=== PATIENT | male | born 1955 | race Caucasian/White ===

== ENCOUNTER 2019-10-07 12:17 | Inpatient (IN) | payer BC ==
[2019-10-07] VITALS (15 sets, daily range): BP systolic 114–184; BP diastolic 63–88
[~2019-10-07] VITALS: Ht 177.8 cm; Wt 104.5 kg
[2019-10-07] MEDS ORDERED: acetaminophen 325mg tablet PO STA (12:46)
[2019-10-07] MEDS ORDERED: normal saline 1000ML IV soln IV ONE (12:50)
[2019-10-07] MEDS: morphine 4 MG/ML inj SYRINge IV PRN ×2 (13:14→13:51)
[2019-10-07 13:16] LABS: BASOPHILS # (AUTO) 0.1 X10'3 (0-0.2); BASOPHILS % (AUTO) 0.4 % (0-1); EOSINOPHILS # (AUTO) 0.1 X10'3 (0-0.9); EOSINOPHILS % (AUTO) 0.7 % (0-6); HEMATOCRIT 44.5 % (42.0-52.0); LYMPHOCYTES # (AUTO) 0.9 X10'3 (1.1-4.8); LYMPHOCYTES % (AUTO) 5.7 % (21-51); MEAN CORPUSCULAR HEMOGLOBIN 27.7 PG (27.0-31.0); MEAN CORPUSCULAR HGB CONC 33.7 g/dL (33.0-36.5); MEAN CORPUSCULAR VOLUME 82.1 FL (78-98); MEAN PLATELET VOLUME 8.2 FL (7.4-10.4); MONOCYTES # (AUTO) 1.2 X10'3 (0-0.9); MONOCYTES % (AUTO) 7.5 % (2-12); NEUTROPHILS # (AUTO) 14.1 X10'3 (1.8-7.7); NEUTROPHILS % (AUTO) 85.7 % (42-75); PLATELET COUNT 285 X10'3 (140-440); RED BLOOD COUNT 5.41 X10'6 (4.70-6.10); RED CELL DISTRIBUTION WIDTH 14.6 % (11.5-14.5); WHITE BLOOD COUNT 16.5 X10'3 (4.5-11.0)
[2019-10-07 13:32] LABS: PARTIAL THROMBOPLASTIN TIME 34 SECONDS (22-32)
[2019-10-07 13:34] LABS: ALANINE AMINOTRANSFERASE 15 U/L (12-78); ALBUMIN 3.4 G/DL (3.4-5.0); ALBUMIN/GLOBULIN RATIO 0.8 (1.1-1.5); ALKALINE PHOSPHATASE 76 IU/L (46-116); ANION GAP 10 (8-16); ASPARTATE AMINO TRANSFERASE 12 U/L (10-37); BILIRUBIN,TOTAL 0.9 MG/DL (0.1-1.0); BLOOD UREA NITROGEN 23 MG/DL (7-18); BUN/CREATININE RATIO 29.1 (5.4-32.0); CALCIUM 9.7 MG/DL (8.5-10.1); CHLORIDE 104 MMOL/L (99-107); CREATININE 0.79 MG/DL (0.60-1.10); GLUCOSE 127 MG/DL (70-104); POTASSIUM 4.2 MMOL/L (3.5-5.1); SODIUM 139 MMOL/L (135-145); TOTAL CARBON DIOXIDE 25.3 MMOL/L (24-32); TOTAL PROTEIN 7.8 G/DL (6.4-8.2); eGFR > 90 ML/MIN
[2019-10-07] MEDS ORDERED: piperacillin/tazo 3.375gm/50ml 50 ML IV ONE (13:45)
[2019-10-07 14:09] LABS: CLARITY,URINE CLEAR (Clear); COLOR,URINE YELLOW (Yellow); GLUCOSE, URINE NEGATIVE (Neg); KETONES,URINE 15 mg/dl (Neg); LEUKOCYTE ESTERASE ,URINE NEGATIVE (Neg); NITRITES, URINE NEGATIVE (Neg); OCCULT BLOOD,URINE SMALL (Neg); PROTEIN,URINE TRACE mg/dl (Neg); UROBILINOGEN,URINE 0.2 E.U/dL (0.2-1.0)
[2019-10-07 14:13] LABS: UA COLLECTION TYPE CLN CATCH MIDSTREAM
[2019-10-07 14:18] LABS: BACTERIA,URINE FEW /HPF (Neg); COARSE GRANULAR CAST 0-3 /LPF (NEGATIVE); HYALINE CASTS 0-3 /LPF (NEGATIVE); MUCUS STRANDS FEW /LPF (Neg); SQUAMOUS EPITHELIAL CELL,UR NONE SEEN /LPF (FEW); TRANSITIONAL EPI CELLS,URINE FEW /HPF
[2019-10-07] MEDS ORDERED: IBUP-1985 PO (14:48)
[2019-10-07] MEDS ORDERED: ATEN50TA PO (14:48)
[2019-10-07] MEDS ORDERED: ASPI-612 PO (14:48)
[2019-10-07] MEDS ORDERED: morphine 2 MG/ML inj. syringe IV PRN (16:25)
[2019-10-07] MEDS ORDERED: magnesium 4gm in 100ml NS 100 ML IV PRN (16:25)
[2019-10-07] MEDS ORDERED: acetaminophen 325mg tablet PO PRN (16:25)
[2019-10-07] MEDS ORDERED: magnesium 2GM in 50ml NS 50 ML IV PRN (16:25)
[2019-10-07] MEDS ORDERED: potassium Cl 20 mEq SR tablet PO PRN ×2 (16:25)
[2019-10-07] MEDS ORDERED: ondansetron/PF 4mg/2ml inj IV PRN ×2 (16:25→17:50)
[2019-10-07] MEDS ORDERED: potassium CL 10mEq/100ml bag 100 ML IV PRN ×2 (16:25)
[2019-10-07] MEDS ORDERED: magnesium Cl slow-release 64mg tablet PO PRN (16:25)
--- NOTE | 2019-10-07 16:31 | NUR ---
MRI FORM FILLED OUT AND FAXED TO MRI. PT RESTING IN POC WITH FAMILY AT BEDSIDE. VSS. WAITING HOSPITALIST FOR ADMISSION.
[2019-10-07] MEDS: normal saline 1000ml 1,000 ML IV SCH ×2 (16:55→21:21)
--- NOTE | 2019-10-07 17:01 | NUR ---
pER dR Mendez, [facility] MRI; NOT NEEDED.
[2019-10-07] MEDS ORDERED: iohexol 300 MG/1 ML 50ml polymer ONE (17:25)
[2019-10-07] MEDS ORDERED: morphine 4 MG/ML inj SYRINge IV PRN ×2 (17:50)
[2019-10-07] MEDS ORDERED: ringers solution, lacted 1,000 ML IV SCH (17:50)
[2019-10-07] MEDS ORDERED: meperidine/PF 25mg/ml syringe IV PRN ×3 (17:50)
[2019-10-07] MEDS ORDERED: proCHLORperazine 10 MG/2 ml inj IV PRN (17:50)
[2019-10-07] MEDS ORDERED: midazolam 2 mg/2 ml injection ONE (18:01)
[2019-10-07] MEDS ORDERED: fentaNYL/PF 50MCG/1 ML 2ML syringe ONE (18:01)
[2019-10-07] MEDS ORDERED: propofol inj 20 ML IV ONE (18:06)
[2019-10-07] MEDS ORDERED: LIDOcaine 2% (20mg/ml) 5ml vial ONE (18:06)
[2019-10-07] MEDS ORDERED: dexamethasone sod phosphate 4mg/ml inj. ONE (18:06)
[2019-10-07] MEDS ORDERED: ondansetron/PF 4mg/2ml inj ONE (18:06)
[2019-10-07] MEDS ORDERED: succinylcholine 20mg/ml inj IV ONE (18:06)
[2019-10-07] MEDS ORDERED: sevoflurane 250ml liquid IH ONE (18:07)
[2019-10-07] MEDS ORDERED: albuterol 60 PUFF/8GM Inhaler IH ONE (18:07)
[2019-10-07] MEDS ORDERED: flumazenil 0.1 mg/ml inj. IV ONE (18:07)
--- NOTE | 2019-10-07 18:09 | NUR ---
Received report from Yariel GUAMAN in ER, patient is going straight to surgery before coming to floor 4007, gave hand off Report given to Clementina GUAMAN
--- NOTE | 2019-10-07 18:57 | NUR ---
Received from OR via ORTHO BED, accompanied by Anesthesiologist DR CANNON and report given by Anesthesiolgist. PT AROUSES EASILY, PLACED ON O2 AND MONITOR, S/P CYSTOSCOPY WITH RIGHT URETERAL STENT PLACEMENT, GENERAL ANESTH, PT DENIES ANY PAIN OR NAUSEA AT THIS TIME WILL CONT TO ASSESS.
[2019-10-07] MEDS ORDERED: ipratropium/albuterol 3ml nebule IH ONE (19:00)
--- NOTE | 2019-10-07 19:38 | NUR ---
Patient in room [facility]. I have received report from Maryellen computer discovery teacher and had the opportunity to ask questions and assume patient care.
[2019-10-07] MEDS: K and/or MAG REPLACEMENT MC SCH (20:00)
--- NOTE | 2019-10-07 20:07 | NUR ---
Report called to receiving nurse. Transferred via ORTHO BED TO ROOM 355B Belongings . Special Issues communicated to receiving nurse.
[2019-10-08 00:16] VITALS: BP 139/76
[2019-10-08 04:50] VITALS: BP 139/77
[2019-10-08 05:28] LABS: ALBUMIN 2.8 G/DL (3.4-5.0); ANION GAP 7 (8-16); BLOOD UREA NITROGEN 18 MG/DL (7-18); CALCIUM 8.9 MG/DL (8.5-10.1); CHLORIDE 106 MMOL/L (99-107); CREATININE 0.82 MG/DL (0.60-1.10); GLUCOSE 154 MG/DL (70-104); SODIUM 142 MMOL/L (135-145); TOTAL CARBON DIOXIDE 29.3 MMOL/L (24-32); eGFR > 90 ML/MIN
[2019-10-08 05:59] LABS: BASOPHILS % (AUTO) 0.1 % (0-1); EOSINOPHILS % (AUTO) 0 % (0-6); HEMATOCRIT 40.4 % (42.0-52.0); HEMOGLOBIN 13.5 g/dl (14.0-17.9); LYMPHOCYTES # (AUTO) 0.7 X10'3 (1.1-4.8); LYMPHOCYTES % (AUTO) 7.4 % (21-51); MEAN CORPUSCULAR HEMOGLOBIN 27.7 PG (27.0-31.0); MEAN CORPUSCULAR HGB CONC 33.5 g/dL (33.0-36.5); MEAN CORPUSCULAR VOLUME 82.6 FL (78-98); MEAN PLATELET VOLUME 8.4 FL (7.4-10.4); MONOCYTES # (AUTO) 0.5 X10'3 (0-0.9); MONOCYTES % (AUTO) 5.1 % (2-12); NEUTROPHILS # (AUTO) 8.5 X10'3 (1.8-7.7); NEUTROPHILS % (AUTO) 87.4 % (42-75); PLATELET COUNT 276 X10'3 (140-440); RED BLOOD COUNT 4.88 X10'6 (4.70-6.10); RED CELL DISTRIBUTION WIDTH 14.6 % (11.5-14.5); WHITE BLOOD COUNT 9.7 X10'3 (4.5-11.0)
--- NOTE | 2019-10-08 06:35 | NUR ---
Patient in room [facility]. I have received report from Lynda GUAMAN and had the opportunity to ask questions and assume patient care.
[2019-10-08] MEDS: normal saline 1000ml 1,000 ML IV SCH ×2 (06:37→17:14)
--- NOTE | 2019-10-08 06:44 | NUR ---
Problems reprioritized. Patient report given, questions answered & plan of care reviewed with ROWENA Cano and ROWENA Palacios.
[2019-10-08 07:00] VITALS: BP 139/77
[2019-10-08] MEDS: K and/or MAG REPLACEMENT MC SCH ×2 (08:00→20:00)
[2019-10-08] MEDS: atenolol 50mg tablet PO SCH (08:24)
[2019-10-08] MEDS ORDERED: FLU VACC QS2019-20 36MOS UP/PF 60 MCG/0.5 ML SYRINGE IMVAC ONE (10:00)
[2019-10-08] MEDS ORDERED: pneumococcal 23-VAL P-sac vacc 25 mcg/0.5ml vial IMVAC ONE (10:00)
[2019-10-08] MEDS: levoFLOXACIN 750MG TABLET PO SCH (10:38)
[2019-10-08 11:00] VITALS: BP 127/69
[2019-10-08 11:23] VITALS: BP 127/69
[2019-10-08] MEDS: HYDROcodone/acetaminophen 10/325mg tab PO PRN ×2 (13:54→20:51)
--- NOTE | 2019-10-08 18:27 | NUR ---
Patient in room [facility]. I have received report from Rachael Russ and had the opportunity to ask questions and assume patient care. Addendum: 10/08/19 at 1827 by Amanda Santos RN Amended: Links added.
--- NOTE | 2019-10-08 18:47 | NUR ---
Problems reprioritized. Patient report given, questions answered & plan of care reviewed with Amanda GUAMAN.
[2019-10-08 19:30] VITALS: BP 156/75
[2019-10-08] MEDS: vancomycin/NS 1 GM ADD-VANTAGE 250 ML IV SCH (23:21)
[2019-10-09] VITALS: BP 137/76
[2019-10-09] MEDS: vancomycin/NS 1 GM ADD-VANTAGE 250 ML IV SCH (01:11)
[2019-10-09] MEDS: normal saline 1000ml 1,000 ML IV SCH ×2 (04:38→16:38)
--- NOTE | 2019-10-09 04:44 | NUR ---
pt urinal emptied 200 cc straining all urine noted few very very tiny grains in the strainer.
[2019-10-09 05:23] LABS: ALBUMIN 2.4 G/DL (3.4-5.0); ANION GAP 4 (8-16); BLOOD UREA NITROGEN 18 MG/DL (7-18); BUN/CREATININE RATIO 22.8 (5.4-32.0); CALCIUM 8.2 MG/DL (8.5-10.1); CHLORIDE 108 MMOL/L (99-107); CREATININE 0.79 MG/DL (0.60-1.10); GLUCOSE 99 MG/DL (70-104); MAGNESIUM 1.8 MG/DL (1.5-2.4); SODIUM 141 MMOL/L (135-145); TOTAL CARBON DIOXIDE 28.8 MMOL/L (24-32); eGFR > 90 ML/MIN
[2019-10-09 05:30] LABS: BASOPHILS # (AUTO) 0.1 X10'3 (0-0.2); BASOPHILS % (AUTO) 0.5 % (0-1); EOSINOPHILS # (AUTO) 0.1 X10'3 (0-0.9); EOSINOPHILS % (AUTO) 0.8 % (0-6); HEMATOCRIT 36.3 % (42.0-52.0); HEMOGLOBIN 12.2 g/dl (14.0-17.9); LYMPHOCYTES # (AUTO) 1.5 X10'3 (1.1-4.8); LYMPHOCYTES % (AUTO) 14.2 % (21-51); MEAN CORPUSCULAR HEMOGLOBIN 27.7 PG (27.0-31.0); MEAN CORPUSCULAR HGB CONC 33.6 g/dL (33.0-36.5); MEAN CORPUSCULAR VOLUME 82.3 FL (78-98); MEAN PLATELET VOLUME 8.2 FL (7.4-10.4); MONOCYTES % (AUTO) 9.6 % (2-12); NEUTROPHILS # (AUTO) 7.8 X10'3 (1.8-7.7); NEUTROPHILS % (AUTO) 74.9 % (42-75); PLATELET COUNT 250 X10'3 (140-440); RED BLOOD COUNT 4.41 X10'6 (4.70-6.10); RED CELL DISTRIBUTION WIDTH 14.6 % (11.5-14.5); WHITE BLOOD COUNT 10.4 X10'3 (4.5-11.0)
[2019-10-09] MEDS: HYDROcodone/acetaminophen 10/325mg tab PO PRN ×3 (05:43→19:25)
--- NOTE | 2019-10-09 06:16 | NUR ---
Problems reprioritized. Patient report given, questions answered & plan of care reviewed with Tianna Russ. Student documentation: I have reviewed and agree with all interventions, assessments performed and documented by Heather Tapia Rn student. Addendum: 10/09/19 at 0617 by Amanda Santos RN Amended: Links added.
--- NOTE | 2019-10-09 06:45 | NUR ---
Patient in room [facility]. I have received report from Amanda GUAMAN and had the opportunity to ask questions and assume patient care.
[2019-10-09] MEDS: K and/or MAG REPLACEMENT MC SCH ×2 (06:59→20:00)
[2019-10-09 07:38] VITALS: BP 140/76
[2019-10-09] MEDS: atenolol 50mg tablet PO SCH (07:39)
[2019-10-09] MEDS ORDERED: vancomycin 1500mg/300ml PREMIX 250 ML IV SCH (08:00)
[2019-10-09] MEDS: levoFLOXACIN 750MG TABLET PO SCH (11:23)
[2019-10-09] MEDS: magnesium hydroxide 30ml (MOM) UD suspension PO PRN (11:27)
[2019-10-09] MEDS: docusate sod 100mg capsule PO SCH ×2 (11:36→19:25)
[2019-10-09 12:00] VITALS: BP 135/85
--- NOTE | 2019-10-09 16:27 | NUR ---
Patient OOB in a chair. Tolerating well. Addendum: 10/09/19 at 1628 by Tianna Lewis RN Amended: Links added.
--- NOTE | 2019-10-09 18:11 | NUR ---
Problems reprioritized. Patient report given, questions answered & plan of care reviewed with Amanda GUAMAN.
--- NOTE | 2019-10-09 18:51 | NUR ---
Patient in room [facility]. I have received report from DEYA GUAMAN and had the opportunity to ask questions and assume patient care. Addendum: 10/09/19 at 1852 by Amanda Santos RN Amended: Links added.
--- NOTE | 2019-10-09 19:00 | NUR ---
medicated for pain with po norco and took colace at this time. at the bedside.
[2019-10-09 19:30] VITALS: BP 157/73
--- NOTE | 2019-10-09 20:30 | NUR ---
pt not wanting to get up till noco has worked.
--- NOTE | 2019-10-09 22:00 | NUR ---
pt up ambulating in the draper 3 laps tolerated well. then soap suds enema done 5oocc instilled without results. had pt turning side to side with fluid insertion.
[2019-10-10] VITALS: BP 122/71
--- NOTE | 2019-10-10 00:15 | NUR ---
pt denies feeling need to get up to use the commode.
--- NOTE | 2019-10-10 01:22 | NUR ---
pt resting eyes closed without changes.
--- NOTE | 2019-10-10 04:30 | NUR ---
pt medicated for pain with norco assisted up to bedside commode no results.
[2019-10-10] MEDS: HYDROcodone/acetaminophen 10/325mg tab PO PRN ×2 (04:33→15:22)
[2019-10-10] MEDS: normal saline 1000ml 1,000 ML IV SCH ×2 (04:34→15:48)
--- NOTE | 2019-10-10 05:30 | NUR ---
pt assisted up to ambulate with front wheel walker 900 ft after attempting to have a bm on commode without results. then pt given milk per request states lactose intolerant then drank hot tea after this. pt remains to have no results.
--- NOTE | 2019-10-10 06:17 | NUR ---
Problems reprioritized. Patient report given, questions answered & plan of care reviewed with Patricia Russ. Addendum: 10/10/19 at 0618 by Amanda Santos RN Amended: Links added.
--- NOTE | 2019-10-10 06:36 | NUR ---
Patient in room [facility]. I have received report from ROWENA ODOM and had the opportunity to ask questions and assume patient care.
[2019-10-10 07:00] VITALS: BP 127/73
[2019-10-10] MEDS ORDERED: VANCOMYCIN LEVEL IV ONE (07:30)
[2019-10-10] MEDS: docusate sod 100mg capsule PO SCH ×2 (07:46→20:42)
[2019-10-10] MEDS: atenolol 50mg tablet PO SCH (07:48)
[2019-10-10] MEDS: K and/or MAG REPLACEMENT MC SCH ×2 (08:00→20:00)
[2019-10-10 08:23] LABS: BASOPHILS % (AUTO) 0.2 % (0-1); EOSINOPHILS # (AUTO) 0.1 X10'3 (0-0.9); EOSINOPHILS % (AUTO) 1.2 % (0-6); HEMATOCRIT 39.9 % (42.0-52.0); HEMOGLOBIN 13.3 g/dl (14.0-17.9); LYMPHOCYTES # (AUTO) 1.5 X10'3 (1.1-4.8); LYMPHOCYTES % (AUTO) 12.5 % (21-51); MEAN CORPUSCULAR HEMOGLOBIN 27.8 PG (27.0-31.0); MEAN CORPUSCULAR HGB CONC 33.5 g/dL (33.0-36.5); MEAN CORPUSCULAR VOLUME 83.1 FL (78-98); MEAN PLATELET VOLUME 7.8 FL (7.4-10.4); MONOCYTES # (AUTO) 1.1 X10'3 (0-0.9); MONOCYTES % (AUTO) 9.1 % (2-12); NEUTROPHILS # (AUTO) 8.9 X10'3 (1.8-7.7); PLATELET COUNT 331 X10'3 (140-440); RED CELL DISTRIBUTION WIDTH 14.8 % (11.5-14.5); WHITE BLOOD COUNT 11.6 X10'3 (4.5-11.0)
[2019-10-10 08:47] LABS: ALBUMIN 2.7 G/DL (3.4-5.0); ANION GAP 5 (8-16); BLOOD UREA NITROGEN 19 MG/DL (7-18); BUN/CREATININE RATIO 24.7 (5.4-32.0); CALCIUM 8.8 MG/DL (8.5-10.1); CHLORIDE 105 MMOL/L (99-107); CREATININE 0.77 MG/DL (0.60-1.10); GLUCOSE 105 MG/DL (70-104); MAGNESIUM 1.9 MG/DL (1.5-2.4); POTASSIUM 3.9 MMOL/L (3.5-5.1); SODIUM 139 MMOL/L (135-145); TOTAL CARBON DIOXIDE 29.1 MMOL/L (24-32); eGFR > 90 ML/MIN
[2019-10-10 08:53] LABS: VANCOMYCIN,TROUGH 21.5 UG/ML (6.0-14.0)
[2019-10-10 11:00] VITALS: BP 132/77
[2019-10-10] MEDS ORDERED: methylnaltrexone br 12mg/0.6ml inj***SubQ only SQ ONE (15:15)
[2019-10-10] MEDS: levoFLOXACIN 750MG TABLET PO SCH (15:22)
[2019-10-10] MEDS: VANCOmycin 1250MG/NS 250ml Bag 250 ML IV SCH (16:31)
--- NOTE | 2019-10-10 18:40 | NUR ---
Patient in room [facility]. I have received report from KASSI GUAMAN and had the opportunity to ask questions and assume patient care. Addendum: 10/10/19 at 1938 by Amanda Santos RN Amended: Links added.
--- NOTE | 2019-10-10 19:10 | NUR ---
Problems reprioritized. Patient report given, questions answered & plan of care reviewed with ROWENA ODOM.
[2019-10-10 19:30] VITALS: BP 149/72
--- NOTE | 2019-10-10 20:00 | NUR ---
took his hs ifrah colemanveronica refused norco for pain with hopesto get his bowels moving. passing some gas. did not want to get up to ambulate.
--- NOTE | 2019-10-10 22:00 | NUR ---
pt resting no changes.
[2019-10-11] VITALS: BP 145/79
--- NOTE | 2019-10-11 | NUR ---
attempt to get pt up but he said he wanted to rest did not want to walk. said he'd do it later in the am.
--- NOTE | 2019-10-11 02:00 | NUR ---
resting no chg
[2019-10-11] MEDS: normal saline 1000ml 1,000 ML IV SCH ×3 (04:08→17:08)
[2019-10-11] MEDS: VANCOmycin 1250MG/NS 250ml Bag 250 ML IV SCH ×3 (04:08→23:49)
[2019-10-11] MEDS: HYDROcodone/acetaminophen 10/325mg tab PO PRN ×3 (04:11→17:07)
--- NOTE | 2019-10-11 04:15 | NUR ---
pt awake on tablet now c/o pain medicated with norco. passing gas but no results.
[2019-10-11 05:23] LABS: BASOPHILS # (AUTO) 0.1 X10'3 (0-0.2); BASOPHILS % (AUTO) 1.4 % (0-1); EOSINOPHILS # (AUTO) 0.1 X10'3 (0-0.9); EOSINOPHILS % (AUTO) 1.5 % (0-6); HEMATOCRIT 37.9 % (42.0-52.0); HEMOGLOBIN 12.8 g/dl (14.0-17.9); LYMPHOCYTES # (AUTO) 1.2 X10'3 (1.1-4.8); LYMPHOCYTES % (AUTO) 12.2 % (21-51); MEAN CORPUSCULAR HEMOGLOBIN 27.9 PG (27.0-31.0); MEAN CORPUSCULAR HGB CONC 33.7 g/dL (33.0-36.5); MEAN CORPUSCULAR VOLUME 82.7 FL (78-98); NEUTROPHILS # (AUTO) 7.5 X10'3 (1.8-7.7); NEUTROPHILS % (AUTO) 74.9 % (42-75); PLATELET COUNT 312 X10'3 (140-440); RED BLOOD COUNT 4.59 X10'6 (4.70-6.10); RED CELL DISTRIBUTION WIDTH 14.3 % (11.5-14.5); WHITE BLOOD COUNT 10.1 X10'3 (4.5-11.0)
[2019-10-11 05:31] LABS: ALBUMIN 2.5 G/DL (3.4-5.0); ANION GAP 6 (8-16); BLOOD UREA NITROGEN 13 MG/DL (7-18); BUN/CREATININE RATIO 15.7 (5.4-32.0); CALCIUM 8.6 MG/DL (8.5-10.1); CHLORIDE 106 MMOL/L (99-107); CREATININE 0.83 MG/DL (0.60-1.10); GLUCOSE 105 MG/DL (70-104); POTASSIUM 3.9 MMOL/L (3.5-5.1); SODIUM 142 MMOL/L (135-145); TOTAL CARBON DIOXIDE 30.4 MMOL/L (24-32); eGFR > 90 ML/MIN
--- NOTE | 2019-10-11 06:02 | NUR ---
Problems reprioritized. Patient report given, questions answered & plan of care reviewed with Alesia Russ. Addendum: 10/11/19 at 0603 by Amanda Santos RN Amended: Links added.
--- NOTE | 2019-10-11 06:25 | NUR ---
Student documentation: I have reviewed and agree with all interventions, assessments performed and documented by Heather Brice Rn student.Student Medication Administration: For this medication-pass time frame, all medication were reviewed, dispensed, administered and documented per hospital policy by Heather Brice Rn Student. Addendum: 10/11/19 at 0718 by Amanda Santos RN Amended: Links added.
[2019-10-11 07:00] VITALS: BP 112/79
--- NOTE | 2019-10-11 07:20 | NUR ---
Patient in room [facility]. I have received report from Melissa GUAMAN and had the opportunity to ask questions and assume patient care.
[2019-10-11] MEDS: K and/or MAG REPLACEMENT MC SCH ×2 (08:00→20:00)
[2019-10-11] MEDS: atenolol 50mg tablet PO SCH (08:57)
[2019-10-11] MEDS: docusate sod 100mg capsule PO SCH ×2 (08:57→22:01)
[2019-10-11] MEDS: levoFLOXACIN 750MG TABLET PO SCH (10:28)
[2019-10-11] MEDS: magnesium hydroxide 30ml (MOM) UD suspension PO PRN (10:28)
[2019-10-11 11:00] VITALS: BP 154/91
[2019-10-11] MEDS ORDERED: magnesium citrate 296ml oral solution PO ONE (12:35)
--- NOTE | 2019-10-11 18:00 | NUR ---
Patient in room [facility]. I have received report from Alesia GUAMAN and had the opportunity to ask questions and assume patient care.
--- NOTE | 2019-10-11 18:34 | NUR ---
Problems reprioritized. Patient report given, questions answered & plan of care reviewed with Naa Russ, Echo in room doing Echo now.
[2019-10-11 20:00] VITALS: BP 127/73
[2019-10-11] MEDS: lactobacillus rhamnosus 10,000 MMU CELLS/CAPSULE PO SCH (22:01)
[2019-10-12] MEDS ORDERED: VANCOMYCIN LEVEL IV ONE (03:30)
[2019-10-12] MEDS: VANCOmycin 1250MG/NS 250ml Bag 250 ML IV SCH ×3 (05:03→20:26)
[2019-10-12 06:00] LABS: ALBUMIN 2.5 G/DL (3.4-5.0); ANION GAP 7 (8-16); BLOOD UREA NITROGEN 12 MG/DL (7-18); BUN/CREATININE RATIO 16.7 (5.4-32.0); CHLORIDE 106 MMOL/L (99-107); CREATININE 0.72 MG/DL (0.60-1.10); GLUCOSE 99 MG/DL (70-104); MAGNESIUM 2.2 MG/DL (1.5-2.4); POTASSIUM 3.9 MMOL/L (3.5-5.1); SODIUM 141 MMOL/L (135-145); VANCOMYCIN,TROUGH 16.5 UG/ML (6.0-14.0); eGFR > 90 ML/MIN
[2019-10-12 06:12] LABS: BASOPHILS # (AUTO) 0.1 X10'3 (0-0.2); BASOPHILS % (AUTO) 0.6 % (0-1); EOSINOPHILS # (AUTO) 0.2 X10'3 (0-0.9); EOSINOPHILS % (AUTO) 2.1 % (0-6); HEMATOCRIT 40.3 % (42.0-52.0); HEMOGLOBIN 13.5 g/dl (14.0-17.9); LYMPHOCYTES # (AUTO) 1.2 X10'3 (1.1-4.8); MEAN CORPUSCULAR HEMOGLOBIN 27.4 PG (27.0-31.0); MEAN CORPUSCULAR HGB CONC 33.4 g/dL (33.0-36.5); MEAN CORPUSCULAR VOLUME 82.1 FL (78-98); MONOCYTES # (AUTO) 1.1 X10'3 (0-0.9); NEUTROPHILS # (AUTO) 7.5 X10'3 (1.8-7.7); NEUTROPHILS % (AUTO) 74.3 % (42-75); PLATELET COUNT 329 X10'3 (140-440); RED BLOOD COUNT 4.91 X10'6 (4.70-6.10); RED CELL DISTRIBUTION WIDTH 14.5 % (11.5-14.5); WHITE BLOOD COUNT 10.1 X10'3 (4.5-11.0)
[2019-10-12] MEDS: normal saline 1000ml 1,000 ML IV SCH ×3 (06:21→23:52)
--- NOTE | 2019-10-12 06:45 | NUR ---
Problems reprioritized. Patient report given, questions answered & plan of care reviewed with Alesia GUAMAN.
[2019-10-12 07:00] VITALS: BP 138/76
--- NOTE | 2019-10-12 07:23 | NUR ---
Patient in room [facility]. I have received report from Night nurses and had the opportunity to ask questions and assume patient care.
[2019-10-12] MEDS: K and/or MAG REPLACEMENT MC SCH ×2 (08:00→20:00)
[2019-10-12] MEDS: docusate sod 100mg capsule PO SCH ×2 (08:00→20:26)
[2019-10-12] MEDS: lactobacillus rhamnosus 10,000 MMU CELLS/CAPSULE PO SCH ×2 (08:39→20:26)
[2019-10-12] MEDS: atenolol 50mg tablet PO SCH (08:40)
[2019-10-12] MEDS: HYDROcodone/acetaminophen 5mg/325mg tablet PO PRN ×2 (09:39→13:48)
[2019-10-12] MEDS: levoFLOXACIN 750MG TABLET PO SCH (10:43)
[2019-10-12 11:00] VITALS: BP 130/79
--- NOTE | 2019-10-12 11:07 | NUR ---
Student Medication Administration: For this medication-pass time frame, all medication were reviewed, dispensed, administered and documented per hospital policy by Felipe Dempsey [facility].
--- NOTE | 2019-10-12 11:50 | NUR ---
Initial: Pt admit with nephrolithiasis. Pt s/p right ureteral stent placement 10/07. Pt currently on a regular diet documented with 75-100% PO intake meeting nutrient needs. Pt previously without a BM since 10/04 however LBM now 10/12 after receiving routine and PRN bowel care. No nutrition intervention warranted at this time. Will continue to follow. Recommendations: 1) Continue regular diet 2) Routine bowel care 3) Wt per rx Addendum: 10/12/19 at [address] Amended: Links added.
--- NOTE | 2019-10-12 12:08 | NUR ---
Problems reprioritized. Patient report given, questions answered & plan of care reviewed with amos Student at bedside.
--- NOTE | 2019-10-12 12:12 | NUR ---
Patient in room [facility]. I have received report from Maureen (nursing home physician) and had the opportunity to ask questions and assume patient care.
--- NOTE | 2019-10-12 14:44 | NUR ---
pt refused to walk due to to high pain. 30 minutes prior to walk attempt pain medication was administered
[2019-10-12] MEDS ORDERED: gadobutrol 10mmol/10ml inj. IV ONE (15:00)
[2019-10-12] MEDS ORDERED: HYDROcodone/acetaminophen 5mg/325mg tablet PO ONE (15:55)
[2019-10-12 18:00] VITALS: BP 111/66
--- NOTE | 2019-10-12 19:00 | NUR ---
Problems reprioritized. Patient report given, questions answered & plan of care reviewed with Rubia Live RN and Shiela GUAMAN.
[2019-10-13] VITALS: BP 150/84
[2019-10-13] MEDS: HYDROcodone/acetaminophen 10/325mg tab PO PRN ×4 (01:25→19:41)
[2019-10-13] MEDS: VANCOmycin 1250MG/NS 250ml Bag 250 ML IV SCH ×3 (03:52→19:41)
--- NOTE | 2019-10-13 06:40 | NUR ---
Patient in room [facility]. I have received report from ROWENA Eaton and had the opportunity to ask questions and assume patient care.
[2019-10-13 08:00] VITALS: BP 145/82
[2019-10-13] MEDS: K and/or MAG REPLACEMENT MC SCH ×2 (08:00→19:19)
[2019-10-13] MEDS: docusate sod 100mg capsule PO SCH ×2 (08:49→19:41)
[2019-10-13] MEDS: lactobacillus rhamnosus 10,000 MMU CELLS/CAPSULE PO SCH ×2 (08:51→19:41)
[2019-10-13] MEDS: atenolol 50mg tablet PO SCH (08:51)
[2019-10-13] MEDS: levoFLOXACIN 750MG TABLET PO SCH (11:28)
[2019-10-13] MEDS: normal saline 1000ml 1,000 ML IV SCH ×2 (11:28→23:48)
[2019-10-13 18:15] VITALS: BP 139/77
--- NOTE | 2019-10-13 18:20 | NUR ---
Problems reprioritized. Patient report given, questions answered & plan of care reviewed with ROWENA PONCE.
--- NOTE | 2019-10-13 18:57 | NUR ---
Patient in room [facility]. I have received report from Heidy Lamb RN and had the opportunity to ask questions and assume patient care.
[2019-10-14] MEDS: VANCOmycin 1250MG/NS 250ml Bag 250 ML IV SCH ×3 (04:07→19:43)
[2019-10-14] MEDS: HYDROcodone/acetaminophen 10/325mg tab PO PRN ×4 (04:11→19:42)
--- NOTE | 2019-10-14 06:20 | NUR ---
Patient in room [facility]. I have received report from ROWENA PONCE and had the opportunity to ask questions and assume patient care.
--- NOTE | 2019-10-14 06:27 | NUR ---
Problems reprioritized. Patient report given, questions answered & plan of care reviewed with Heidy Lamb RN.
[2019-10-14 07:00] VITALS: BP 149/81
[2019-10-14] MEDS: lactobacillus rhamnosus 10,000 MMU CELLS/CAPSULE PO SCH ×2 (07:27→19:43)
[2019-10-14] MEDS: docusate sod 100mg capsule PO SCH ×2 (07:27→19:43)
[2019-10-14] MEDS: K and/or MAG REPLACEMENT MC SCH ×2 (08:00→18:40)
[2019-10-14] MEDS: atenolol 50mg tablet PO SCH (08:00)
[2019-10-14 11:00] VITALS: BP 142/77
[2019-10-14] MEDS: levoFLOXACIN 750MG TABLET PO SCH (12:20)
[2019-10-14] MEDS: normal saline 1000ml 1,000 ML IV SCH ×3 (12:20→23:35)
--- NOTE | 2019-10-14 18:10 | NUR ---
Problems reprioritized. Patient report given, questions answered & plan of care reviewed with ROWENA PONCE.
[2019-10-14 18:15] VITALS: BP 155/81
--- NOTE | 2019-10-14 18:32 | NUR ---
Patient in room [facility]. I have received report from Heidy Lamb RN and had the opportunity to ask questions and assume patient care.
[2019-10-15 00:14] VITALS: BP 150/83
[2019-10-15] MEDS: VANCOmycin 1250MG/NS 250ml Bag 250 ML IV SCH ×2 (03:28→12:52)
--- NOTE | 2019-10-15 06:28 | NUR ---
Problems reprioritized. Patient report given, questions answered & plan of care reviewed with ROWENA Cullen.
--- NOTE | 2019-10-15 06:40 | NUR ---
Patient in room [facility]. I have received report from Lynda GUAMAN and had the opportunity to ask questions and assume patient care.
[2019-10-15 07:00] VITALS: BP 155/90
[2019-10-15 07:19] VITALS: BP_SYST 155
[2019-10-15] MEDS: atenolol 50mg tablet PO SCH (07:19)
[2019-10-15] MEDS: docusate sod 100mg capsule PO SCH (07:20)
[2019-10-15] MEDS: HYDROcodone/acetaminophen 10/325mg tab PO PRN ×2 (07:20→12:22)
[2019-10-15] MEDS: lactobacillus rhamnosus 10,000 MMU CELLS/CAPSULE PO SCH (07:20)
[2019-10-15] MEDS: K and/or MAG REPLACEMENT MC SCH (08:00)
[2019-10-15 10:04] LABS: BASOPHILS # (AUTO) 0.1 X10'3 (0-0.2); BASOPHILS % (AUTO) 0.9 % (0-1); EOSINOPHILS # (AUTO) 0.2 X10'3 (0-0.9); EOSINOPHILS % (AUTO) 2.4 % (0-6); HEMATOCRIT 40.6 % (42.0-52.0); HEMOGLOBIN 13.5 g/dl (14.0-17.9); LYMPHOCYTES # (AUTO) 1.2 X10'3 (1.1-4.8); MEAN CORPUSCULAR HEMOGLOBIN 27.4 PG (27.0-31.0); MEAN CORPUSCULAR HGB CONC 33.2 g/dL (33.0-36.5); MEAN CORPUSCULAR VOLUME 82.4 FL (78-98); MEAN PLATELET VOLUME 7.6 FL (7.4-10.4); MONOCYTES # (AUTO) 0.8 X10'3 (0-0.9); MONOCYTES % (AUTO) 7.9 % (2-12); NEUTROPHILS % (AUTO) 76.8 % (42-75); PLATELET COUNT 389 X10'3 (140-440); RED BLOOD COUNT 4.92 X10'6 (4.70-6.10); RED CELL DISTRIBUTION WIDTH 14.5 % (11.5-14.5); WHITE BLOOD COUNT 10.4 X10'3 (4.5-11.0)
[2019-10-15 10:16] LABS: ALBUMIN 2.6 G/DL (3.4-5.0); ANION GAP 5 (8-16); BLOOD UREA NITROGEN 13 MG/DL (7-18); BUN/CREATININE RATIO 15.3 (5.4-32.0); CALCIUM 8.9 MG/DL (8.5-10.1); CHLORIDE 106 MMOL/L (99-107); CREATININE 0.85 MG/DL (0.60-1.10); GLUCOSE 157 MG/DL (70-104); POTASSIUM 3.9 MMOL/L (3.5-5.1); SODIUM 140 MMOL/L (135-145); eGFR > 90 ML/MIN
--- NOTE | 2019-10-15 10:18 | NUR ---
Student documentation: I have reviewed and agree with all interventions, assessments performed and documented by Larry Barnes, practical nursing instructor .Student Medication Administration: For this medication-pass time frame, all medication were reviewed, dispensed, administered and documented per hospital policy by Larry Barnes.
[2019-10-15] MEDS ORDERED: HYDR-4353 PO (10:38)
[2019-10-15] MEDS ORDERED: DOCU100C40 PO (10:38)
[2019-10-15] MEDS ORDERED: LEVO750T46 PO (10:38)
[2019-10-15] MEDS: levoFLOXACIN 750MG TABLET PO SCH (12:25)
--- NOTE | 2019-10-15 15:00 | NUR ---
Pt Dc to home. Pt A & o and on no apparent pain. Pt verbalized understanding of all Dc orders and has no questions about process of outpatient IV infusions with [facility]. Pt understands importance of following up with PCP, Dr Campbell within a week. Pt had packed all of her belongings and was wheeled out to the front in a wheel chair where daughter and picked him up. Pt given all phone numbers and addresses for all providers he needs to follow up with.
== END 2019-10-15 15:00 | disposition home or self-care (01) | DRG 853 ==
LOC: ER 12:17 → ED HOLD 16:21 → ORTHO 4S 18:15 → SUR 3N 19:45 → OBSVTOIN 10-08 16:42
PROVIDERS: ADMIT Internal Medicine; ATTEND Internal Medicine
PROC: BT1D1ZZ Fluoroscopy of Right Kidney, Ureter and Bladder using Low Osmolar Contrast (ICD-10-PCS; principal; 2019-10-08)
PROC: 0T768DZ Dilation of Right Ureter with Intraluminal Device, Via Natural or Artificial Opening Endoscopic (ICD-10-PCS; 2019-10-08)
PROC: BT161ZZ Fluoroscopy of Right Ureter using Low Osmolar Contrast (ICD-10-PCS; 2019-10-08)
PROC: 3E02340 Introduction of Influenza Vaccine into Muscle, Percutaneous Approach (ICD-10-PCS; 2019-10-08)
PROC: 3E0234Z Introduction of Serum, Toxoid and Vaccine into Muscle, Percutaneous Approach (ICD-10-PCS; 2019-10-08)
PROC: 02HV33Z Insertion of Infusion Device into Superior Vena Cava, Percutaneous Approach (ICD-10-PCS; 2019-10-14)
DX: A41.02 Sepsis due to Methicillin resistant Staphylococcus aureus (principal); J96.00 Acute respiratory failure, unspecified whether with hypoxia or hypercapnia; N13.6 Pyonephrosis; Z68.42 Body mass index [BMI] 45.0-49.9, adult; I42.7 Cardiomyopathy due to drug and external agent; N17.9 Acute kidney failure, unspecified; M46.26 Osteomyelitis of vertebra, lumbar region; M46.46 Discitis, unspecified, lumbar region; D49.4 Neoplasm of unspecified behavior of bladder; F12.90 Cannabis use, unspecified, uncomplicated; K59.00 Constipation, unspecified; E66.01 Morbid (severe) obesity due to excess calories; T50.995A Adverse effect of other drugs, medicaments and biological substances, initial encounter; K40.20 Bilateral inguinal hernia, without obstruction or gangrene, not specified as recurrent; I10 Essential (primary) hypertension; Z87.442 Personal history of urinary calculi; Z23 Encounter for immunization; Y92.89 Other specified places as the place of occurrence of the external cause; Z87.891 Personal history of nicotine dependence
CPT/HCPCS: 36573; 93306; 96365; 96375; 99285; Z7506; 36415; 71045; 72100; 72148; 74176; 76000; 76937; 80048; 80053; 80202; 81001; 83605; 83735; 84145; 85025; 85610; 85730; 87040; 87077; 87081; 87088; 87186; 90732; 93005; 94640; 97116; 97161; 97530; A4618; A7000; A9585; C1758; C1769; C2617; G0378; J0330; J1100; J2001; J2175; J2212; J2250; J2270; J2405; J2543; J2704; J3010; J3370; J3490; J7030; J7120; Q2037; Q9967

== ENCOUNTER 2023-04-20 06:02 | Day surgery (SDC) | payer MEDICARE ==
[2023-04-13 15:17] LABS: BASOPHILS # (AUTO) 0.1 X10'3 (0-0.2); EOSINOPHILS # (AUTO) 0.2 X10'3 (0-0.9); EOSINOPHILS % (AUTO) 2.6 % (0-6); LYMPHOCYTES # (AUTO) 2.5 X10'3 (1.1-4.8); LYMPHOCYTES % (AUTO) 27.1 % (21-51); MEAN CORPUSCULAR HEMOGLOBIN 27.8 PG (27.0-31.0); MEAN CORPUSCULAR HGB CONC 33.4 g/dL (33.0-36.5); MEAN CORPUSCULAR VOLUME 83.2 FL (78-98); MEAN PLATELET VOLUME 8.8 FL (7.4-10.4); MONOCYTES # (AUTO) 0.8 X10'3 (0-0.9); MONOCYTES % (AUTO) 8.5 % (2-12); NEUTROPHILS # (AUTO) 5.5 X10'3 (1.8-7.7); NEUTROPHILS % (AUTO) 60.8 % (42-75); PRE OP HEMOGLOBIN 13.4 g/dL (14.0-17.9); PRE OP PLATELET COUNT 245 X10'3 (140-440); PRE OP WHITE BLOOD COUNT 9.1 10'3 (4.8-10.8); RED BLOOD COUNT 4.81 X10'6 (4.70-6.10); RED CELL DISTRIBUTION WIDTH 14.7 % (11.5-14.5)
[2023-04-13 15:23] LABS: PRE OP PROTIME 11.2 SECONDS (9.0-12.0)
[2023-04-13 15:25] LABS: ALBUMIN 3.6 G/DL (3.4-5.0); ALBUMIN/GLOBULIN RATIO 1.2 (1.1-1.5); ALKALINE PHOSPHATASE 68 IU/L (46-116); BLOOD UREA NITROGEN 23 MG/DL (7-18); CHLORIDE 101 MMOL/L (99-107); PRE OP ALT 26 U/L (30-65); PRE OP ANION GAP 7 (8-16); PRE OP AST 13 U/L (10-37); PRE OP BILIRUB, TOTAL 0.6 MG/DL (0.0-1.0); PRE OP GLUCOSE 108 MG/DL (70-104); PRE OP POTASSIUM 4.4 MMOL/L (3.4-5.1); PRE OP SODIUM 137 MMOL/L (135-145); TOTAL CARBON DIOXIDE 29.3 MMOL/L (24-32); TOTAL PROTEIN 6.7 G/DL (6.4-8.2); eGFR 74 ML/MIN
[2023-04-20] VITALS (10 sets, daily range): BP systolic 124–178; BP diastolic 69–87; PULSE 52–62; RESP 8–16; TEMP 98.1; O2SAT 95–98
[~2023-04-20] VITALS: Ht 177.8 cm; Wt 90.7 kg
[~2023-04-20 06:02] MED LIST: ACET-1025 PO; APIX5TAB3 PO; DOCUMENT DATE & TIME OF BETA-BLOCKER PO ONE; INDOCYANINE GREEN 25 MG/10 ML VIAL IV ONE; LIDO1ADH67 TOP; LISI20TA28 PO; SOTA80TA73 PO; ceFOXitin 2GM-NS 100mL ADDvant 100 ML IV ONE; famotidine 20mg tablet PO ONE; ringers solution, lacted 1,000 ML IV SCH
[2023-04-20] MEDS ORDERED: BUPIVAcaine/PF 2.5 mg/ml (0.25%) 30ml vial ONE (06:44)
[2023-04-20] MEDS ORDERED: midazolam 1 mg/ML 2ml injection ONE (07:33)
[2023-04-20] MEDS ORDERED: fentaNYL/PF 50MCG/1 ML 2ML syringe ONE (07:33)
[2023-04-20] MEDS ORDERED: rocuronium 10mg/ml inj IV ONE (07:33)
[2023-04-20] MEDS ORDERED: propofol inj 20 ML IV ONE (07:33)
[2023-04-20] MEDS ORDERED: sevoflurane 250ml liquid IH ONE (08:11)
[2023-04-20] MEDS ORDERED: morphine 4 MG/ML inj SYRINge IV PRN (08:55)
[2023-04-20] MEDS ORDERED: proCHLORperazine 10 MG/2 ml inj IV PRN (08:55)
[2023-04-20] MEDS ORDERED: ringers solution, lacted 1,000 ML IV SCH (08:55)
[2023-04-20] MEDS ORDERED: ondansetron/PF 4mg/2ml inj IV PRN (08:55)
[2023-04-20] MEDS ORDERED: morphine 2 MG/ML inj. syringe IV PRN (08:55)
[2023-04-20] MEDS ORDERED: meperidine/PF 25mg/ml syringe IV PRN ×3 (08:55)
[2023-04-20] MEDS ORDERED: dexamethasone sod phosphate 4mg/ml inj. ONE (09:40)
[2023-04-20] MEDS ORDERED: neostigmine methylsulfate 1 MG/ML 10ml vial ONE (09:41)
[2023-04-20] MEDS ORDERED: glycopyrrolate 0.2mg/ml inj ONE (09:41)
[2023-04-20] MEDS ORDERED: ondansetron/PF 4mg/2ml inj ONE (09:41)
[2023-04-20] MEDS ORDERED: phenylephrine 10mg/ml inj. -priapism dosing ONE (09:41)
--- NOTE | 2023-04-20 09:43 | NUR ---
Received from OR via , accompanied by Anesthesiologist DR. RAVI and report given by Anesthesiolgist. VSS. IV IN RIGHT WRIST 20G NO ISSUES. LAPSITES X3 WITH ROBINA DRAIN TO LATERAL RIGHT ABD. Addendum: 04/20/23 at 1125 by Sandra Stevens RN Amended: Links added.
--- NOTE | 2023-04-20 10:40 | NUR ---
DRAINED ROBINA PATIENT HAD 70MLS OUT
--- NOTE | 2023-04-20 10:53 | NUR ---
PATIENT MEETS DISCHARGE CRITERIA. VSS. IV DC'D WITH NO ISSUES. PATIENT PUT HIS DENTURES BACK IN HIS MOUTH HIMSELF. EDUCATED PATIENT ON HOW TO MANAGE HIS ROBINA DRAIN. HER VERBALIZED AN UNDERSTANDING OF THE TEACH. WHEELED THE PATIENT TO HIS 'S CAR. Addendum: 04/20/23 at 1134 by Sandra Stevens RN Amended: Links added.
[2023-04-20] MEDS ORDERED: acetaminophen 1,000mg/100ml IV 100 ML IV ONE (14:00)
== END 2023-04-20 10:53 | disposition home or self-care (01) ==
LOC: PAS 06:02
PROVIDERS: ATTEND Surgery
DX: K80.12 Calculus of gallbladder with acute and chronic cholecystitis without obstruction (principal); I10 Essential (primary) hypertension; I48.92 Unspecified atrial flutter; M86.8X8 Other osteomyelitis, other site; E78.5 Hyperlipidemia, unspecified; Z85.51 Personal history of malignant neoplasm of bladder; Z79.899 Other long term (current) drug therapy; Z98.890 Other specified postprocedural states; Z87.891 Personal history of nicotine dependence; Z87.442 Personal history of urinary calculi; Z79.01 Long term (current) use of anticoagulants
CPT/HCPCS: 36415; 47562; 80053; 82948; 85025; 85610; 85730; J0131; J0694; J1100; J2250; J2370; J2405; J2704; J2710; J3010; J3490; J7030; J7120; Z7506; Z7508; Z7512; A4215; A4618; A6402; A6449; A7000